=== PATIENT | female | born 1980 | race Caucasian/White ===

== ENCOUNTER 2019-02-06 11:40 | Inpatient (IN) | payer MEDICAID ==
[~2019-02-06] VITALS: Ht 157.5 cm; Wt 116.7 kg
[2019-02-06] VITALS (7 sets, daily range): BP systolic 119–152; BP diastolic 62–76
[2019-02-06 12:58] LABS: HEMATOCRIT 35.5 % (36.0-47.0); HEMOGLOBIN 11.4 g/dl (12.0-15.5); MEAN CORPUSCULAR HEMOGLOBIN 26.5 pg (27.0-33.0); MEAN CORPUSCULAR HGB CONC 32.1 g/dl (32.0-36.5); MEAN CORPUSCULAR VOLUME 82.6 fl (80.0-96.0); PLATELET COUNT, AUTOMATED 232 10^3/uL (150-450); WHITE BLOOD COUNT 6.6 10^3/uL (4.0-10.0)
[2019-02-06] MEDS: miSOPROStol 50 MCG 1/2 TAB (S0191) SL SCH ×3 (13:05→21:06)
--- NOTE | 2019-02-06 14:59 | HPE ---
DATE OF ADMISSION: 02/06/2019 HISTORY: 38-year-old 3 para 2 female at 38-0/7 weeks gestation by last menstrual period (LMP) consistent with 8 week ultrasound, estimated date of confinement (EDC) of 02/19/2019 presents for labor induction. The indication for induction is chronic hypertension on labetalol. She denies bleeding or contractions. COURSE: The patient initiated care at [facility] and care was transferred to [facility] at 25 weeks gestation due to a move. The patient moved to the [facility]. course is significant for hypothyroidism for which her Synthroid was restarted. She has a history of chronic hypertension and was on labetalol 50 mg twice a day. Blood pressures are stable. Antepartum testing was stable. She has a history of gastric bypass and did not need gestational diabetes testing. She did test sugars and they were adequate. OBSTETRICAL HISTORY: 1. 2000 at 40 weeks vaginal delivery 7 pound 12 ounce female infant. 2. 2001 at 40 weeks vaginal delivery 9 pound 1 ounce female . MEDICAL HISTORY: 1. Obesity. 2. Migraines. 3. Depression. 4. Hypothyroidism. 5. Chronic hypertension. SURGICAL HISTORY: 1. Gastric bypass. 2. Tonsillectomy and adenoidectomy. ALLERGIES: None. SOCIAL HISTORY: The patient lives in [place]. The father of the baby is involved. She denies cigarettes alcohol or drug use. FAMILY HISTORY: Noncontributory. PHYSICAL EXAMINATION: Blood pressure 128/78, pulse 84. No apparent distress. Head and neck exam normal. Lungs clear. Heart regular rate and rhythm. Abdomen nontender, gravid. heart tones category 1, contractions rare. Sterile vaginal exam 1 cm, long, -2, posterior, moderate, vertex. Extremities nontender. LABORATORIES: Blood type B positive. Rubella immune. RPR nonreactive. Hepatitis B and C negative. HIV negative. Group B Streptococcus (GBS) negative. ASSESSMENT: 38-year-old 3, para 2 female at 38-0/7 weeks gestation with chronic hypertension who presents for labor induction. PLAN: The patient was admitted on 02/06/2019. The risks of induction were discussed.
[2019-02-07 00:54] VITALS: BP 134/92
[2019-02-07] MEDS ORDERED: LR 1,000 ML IV SCH ×3 (01:31→05:00)
[2019-02-07] MEDS ORDERED: OXYTOCIN DRIP 30 UNITS in IV 1 EA IV SCH ×2 (01:45→04:42)
[2019-02-07] MEDS ORDERED: PROMETHAZINE INJ 25 MG/ML VIAL (J2550) IV ONE (01:45)
[2019-02-07] MEDS ORDERED: BUTORPHANOL 2 MG/ML INJ (J0595) IV ONE (01:45)
[2019-02-07 02:39] VITALS: BP 139/79
[2019-02-07] MEDS ORDERED: ceFAZolin 2 GM/D5W 50 ML IV BAG (J0690 PER 500MG) As Ordered ONE (03:03)
[2019-02-07] MEDS ORDERED: BICITRA 30ML SOLN UDC As Ordered ONE (03:04)
[2019-02-07] MEDS ORDERED: ONDANSETRON 4MG/2ML VIAL (J2405) IV PRN ×3 (03:54→05:00)
[2019-02-07] MEDS ORDERED: diphenhydrAMINE INJ 50MG/ML VIAL (J1200) IV PRN (03:54)
[2019-02-07] MEDS ORDERED: NALBUPHINE HCL 10 MG/ML AMP (J2300) IV PRN (03:54)
[2019-02-07] MEDS ORDERED: METOCLOPRAMIDE INJ 10MG/2ML VIAL (J2765) IV PRN ×2 (03:54→05:00)
[2019-02-07] MEDS ORDERED: NALOXONE INJ 0.4 MG/1 ML VIAL (J2310) IV PRN ×2 (03:54)
[2019-02-07] MEDS ORDERED: OXYTOCIN INJ 10 UNITS/ML VIAL (J2590) As Ordered ONE (04:09)
[2019-02-07] MEDS ORDERED: dexameTHASONE 4 MG/ML 1ML VIAL (J1100) As Ordered ONE (04:10)
[2019-02-07] MEDS ORDERED: ONDANSETRON 4MG/2ML VIAL (J2405) As Ordered ONE (04:10)
[2019-02-07 04:22] LABS: CORD GAS ABE V -3.9; CORD GAS HCO3 V 21.6 MEQ/L; CORD GAS O2 SAT V 52.3 %; CORD GAS PCO2 V 41.1 mmHg; CORD GAS PH V 7.339 UNITS; CORD GAS TCO2 V 22.9 MEQ/L
[2019-02-07] MEDS ORDERED: RHOGAM 300 MCG (1500 IU) INJ (J2790) IM SCH (04:45)
[2019-02-07] MEDS ORDERED: ONDANSETRON 4 MG TAB (S0181) PO PRN (04:45)
[2019-02-07] MEDS ORDERED: MEASLES,MUMPS,RUBELLA VACCINE INJ (MMR-II) (90707) SC SCH (04:45)
[2019-02-07] MEDS ORDERED: DOCUSATE SODIUM 100 MG CAP PO PRN (04:45)
[2019-02-07] MEDS ORDERED: OXYTOCIN 30 UNITS IN 0.9% NaCl 500ML IV BAG (J2590) As Ordered ONE (04:54)
[2019-02-07] MEDS ORDERED: PERCOCET 5MG/325MG TAB PO PRN (05:00)
[2019-02-07] MEDS ORDERED: MEPERIDINE INJ 25 MG/ML VIAL (J2175) IV PRN (05:00)
[2019-02-07] MEDS ORDERED: fentaNYL 100 MCG/2 ML INJECTION (J3010) IV PRN (05:00)
[2019-02-07] MEDS ORDERED: KETOROLAC 30 MG/ML VIAL (J1885) IV SCH (05:00)
[2019-02-07 06:45] VITALS: BP 116/55
[2019-02-07] MEDS ORDERED: MORPHINE PRES-FREE INJ 10 MG/10 ML VIAL (J2274) As Ordered ONE (07:24)
[2019-02-07] MEDS: PRENATAL VITAMINS CHEWABLE TABLET PO SCH (09:53)
[2019-02-07] MEDS: KETOROLAC 30 MG/ML VIAL (J1885) IV SCH ×2 (13:38→20:15)
[2019-02-07 14:00] VITALS: BP 113/57
[2019-02-07 18:00] VITALS: BP 109/53
[2019-02-07] MEDS ORDERED: OXYC1TAB23 PO (21:16)
[2019-02-07 22:00] VITALS: BP 111/58
[2019-02-08 02:16] VITALS: BP 96/53
[2019-02-08] MEDS: PERCOCET 5MG/325MG TAB PO PRN ×4 (02:19→19:31)
[2019-02-08] MEDS ORDERED: IBUPROFEN 800 MG TAB PO SCH (04:00)
[2019-02-08 06:22] VITALS: BP 131/68
[2019-02-08 07:09] LABS: HEMATOCRIT 31.5 % (36.0-47.0); HEMOGLOBIN 10.2 g/dl (12.0-15.5); MEAN CORPUSCULAR HEMOGLOBIN 27.1 pg (27.0-33.0); MEAN CORPUSCULAR HGB CONC 32.4 g/dl (32.0-36.5); MEAN CORPUSCULAR VOLUME 83.6 fl (80.0-96.0); PLATELET COUNT, AUTOMATED 228 10^3/uL (150-450); RED BLOOD COUNT 3.77 10^6/uL (4.00-5.40); WHITE BLOOD COUNT 10.8 10^3/uL (4.0-10.0)
[2019-02-08] MEDS: PRENATAL VITAMINS CHEWABLE TABLET PO SCH (07:22)
--- NOTE | 2019-02-08 11:08 | RO ---
DATE OF PROCEDURE: 02/07/2019 PREDELIVERY DIAGNOSIS: 38 weeks, chronic hypertension, intolerance of labor. POSTOPERATIVE DIAGNOSIS: 38 weeks, chronic hypertension, intolerance of labor. PROCEDURE: Primary low transverse section and bilateral tubal ligation. SURGEON: Errol Cerrato MD CASH APPLICATIONS CLERK: Socrates Prince DO ANESTHESIA: Spinal. ESTIMATED BLOOD LOSS: 500 mL. URINE OUTPUT: 100 mL. FINDINGS: 6 pound 10 ounce (3010 gram) male , score 8 and 9. Venous cord gas 7.339, base excess -3.1. Normal uterus, fallopian tubes and ovaries. DESCRIPTION OF PROCEDURE: Verbal consent was obtained for (C) section as well as tubal sterilization due to the emergent nature of the procedure. Spinal anesthesia was placed. The Coffman catheter had already been placed previously. A Traxi pannus retractor was placed. The abdomen was prepped with Betadine. A Pfannenstiel skin incision was made with a scalpel and carried through to the fascia. The fascia was nicked and extended. Peritoneal cavity was entered. A Mobius retractor was placed. A bladder flap was created. A curvilinear incision was made in the lower uterine segment. This was extended manually. The was delivered from the vertex position. Nuchal cord times one was reduced manually. Shoulders delivered with ease. The was handed off to the awaiting nurses. Placenta was expressed. The uterus was closed with #0 Vicryl in a running locked fashion. A second imbricating layer of #0 Vicryl was placed. Attention was turned to the fallopian tubes. The tubes were grasped with Enriqueta clamps. A window was created in the broad ligament. Three ties #3-0 chromic was placed around a segment tube on either side of clamp and a knuckle of tube was excised bilaterally and sent pathology. The peritoneum was closed with #2-0 Vicryl in a running fashion. The fascia was closed with #0 Vicryl in a running fashion. Deep layer was irrigated and closed with #2-0 chromic. Skin was closed with #4-0 Monocryl subcuticular sutures. Sponge, instrument, and needle counts were correct. Edited: 02/08/2019 1118 [facility]
[2019-02-08 14:55] VITALS: BP 132/75
[2019-02-08 18:03] VITALS: BP 146/71
[2019-02-08 22:08] VITALS: BP 120/68
[2019-02-09 02:08] VITALS: BP 127/68
[2019-02-09] MEDS: PERCOCET 5MG/325MG TAB PO PRN ×2 (03:56→09:27)
[2019-02-09 06:14] VITALS: BP 127/58
--- NOTE | 2019-02-09 07:51 | DS.PDOC ---
Discharge Summary General Date of Admission Feb 06, 2019 at 11:40 Date of Discharge 02/09/2019 Attending Physician: NORRIS STAHL MD Discharge Summary PROCEDURES PERFORMED DURING STAY: Primary section ADMITTING DIAGNOSES: 1. . DISCHARGE DIAGNOSES: 1. Day 2 postoperative with tubal ligation. COMPLICATIONS/CHIEF COMPLAINT: Induction. HISTORY OF PRESENT ILLNESS: . HOSPITAL COURSE: . DISCHARGE MEDICATIONS: Please see below. ALLERGIES: Please see below. PHYSICAL EXAMINATION ON DISCHARGE: VITAL SIGNS: Please see below. GENERAL: A+Ox3 CARDIOVASCULAR EXAMINATION: regular rate and rhythm RESPIRATORY EXAMINATION: regular rate with no use of accessory muscles ABDOMINAL EXAMINATION: dressing intact EXTREMITIES: generalized edema with no clonus SKIN: warm, dry, no rashes or unusual lesions LABORATORY DATA: Please see below. ACTIVITY: As tolerated. DIET: regular DISCHARGE INSTRUCTIONS: 1. . DISCHARGE CONDITION: Stable. Vital Signs/I&Os Vital Signs Date Time Temp Pulse Resp B/P (MAP) Pulse Ox O2 Delivery O2 Flow Rate FiO2 02/09/19 06:14 97.5 91 18 127/58 (81) 02/08/19 18:03 97 02/08/19 06:22 Room Air I&O- Last 24 Hours up to 6 AM 02/09/19 06:00 Intake Total 700 ml Balance 700 ml Discharge Medications Scheduled PRN Oxycodone HCl/Acetaminophen (Oxycodone-Acetaminophen 5-325) 1 Each Tablet, 1 TAB PO TIDP PRN for pain Allergies Coded Allergies: No Known Allergies (Unverified , 02/06/19) MARILYN ARRIAGA CNM Feb 09, 2019 07:51
[2019-02-09] MEDS: PRENATAL VITAMINS CHEWABLE TABLET PO SCH (09:25)
== END 2019-02-09 13:30 | disposition home or self-care (01) | DRG 540 ==
LOC: M LDI 11:40 → M OBS 02-07 06:25
PROVIDERS: ADMIT Specialist; ATTEND Specialist
PROC: 0UB70ZZ Excision of Bilateral Fallopian Tubes, Open Approach (ICD-10-PCS; 2019-02-07)
PROC: 10D00Z1 Extraction of Products of Conception, Low, Open Approach (ICD-10-PCS; principal; 2019-02-07 03:49)
DX: O76 Abnormality in fetal heart rate and rhythm complicating labor and delivery (principal); O10.42 Pre-existing secondary hypertension complicating childbirth; Z37.0 Single live birth; Z3A.38 38 weeks gestation of pregnancy; E03.9 Hypothyroidism, unspecified; O99.284 Endocrine, nutritional and metabolic diseases complicating childbirth; Z30.2 Encounter for sterilization; O09.523 Supervision of elderly multigravida, third trimester

== ENCOUNTER → 2019-05-28 | Outpatient (REF) ==
[~2019-05-28] MED LIST: OXYC1TAB23 PO
[2019-05-28 10:18] LABS: RUBELLA IgG QUALITATIVE IMMUNE (IMMUNE)
== END ==
LOC: M LAB 08:55
PROVIDERS: ATTEND Nurse Practitioner Adult Health
DX: Z02.1 Encounter for pre-employment examination (principal)

== ENCOUNTER → 2021-01-13 | Outpatient (CLI) | payer MEDICAID ==
[2021-01-13 10:23] LABS: ALBUMIN 3.5 GM/DL (3.2-5.2); ALT/SGPT 22 U/L (12-78); BILIRUBIN,TOTAL 0.4 MG/DL (0.2-1.0); BLOOD UREA NITROGEN 10 MG/DL (7-18); CARBON DIOXIDE LEVEL 24 MEQ/L (21-32); CHLORIDE LEVEL 111 MEQ/L (98-107); CHOLESTEROL LEVEL 176 MG/DL (<200); CREATININE FOR GFR 0.77 MG/DL (0.55-1.30); GLOMERULAR FILTRATION RATE > 60.0 (>58); GLUCOSE, FASTING 86 MG/DL (70-100); HDL CHOLESTEROL 51 MG/DL (>40); LDL CHOLESTEROL 106 MG/DL (<100); NON-HDL-C 125 MG/DL; POTASSIUM SERUM 4.5 MEQ/L (3.5-5.1); SODIUM LEVEL 141 MEQ/L (136-145); TOTAL PROTEIN 6.4 GM/DL (6.4-8.2); TRIGLYCERIDES LEVEL 95 MG/DL (<150)
== END ==
LOC: M LAB 08:51
PROVIDERS: ATTEND Family Medicine Addiction Medicine
DX: E03.9 Hypothyroidism, unspecified (principal)

== ENCOUNTER 2021-02-16 11:34 | Emergency (ER) | payer MEDICAID ==
[~2021-02-16] VITALS: Ht 157.5 cm; Wt 120.9 kg
[2021-02-16] MEDS ORDERED: OMEP40CA5 (11:46)
[2021-02-16] MEDS ORDERED: ACET325C5 PO (11:46)
[2021-02-16] MEDS ORDERED: MONT10TA97 (11:46)
[2021-02-16] MEDS ORDERED: LEVO100T5 (11:46)
[2021-02-16] MEDS ORDERED: ACETAMINOPHEN 325 MG TAB PO ONE (12:55)
[2021-02-16] MEDS ORDERED: IBUPROFEN 600MG TAB PO ONE (12:55)
[2021-02-16 13:33] VITALS: BP 134/76
[2021-02-16 14:03] LABS: RSV AMPLIFICATION NEGATIVE (NEGATIVE)
[2021-03-13] MEDS ORDERED: LIDO2SOL17 PO (21:17)
[2021-03-13] MEDS ORDERED: BENZ200C70 PO (21:17)
== END 2021-02-16 13:58 | disposition home or self-care (01) ==
LOC: M ED 11:34
DX: R51.9 Headache, unspecified (principal); R42 Dizziness and giddiness; I10 Essential (primary) hypertension; E03.9 Hypothyroidism, unspecified; Z79.890 Hormone replacement therapy; Z79.899 Other long term (current) drug therapy

== ENCOUNTER 2021-02-18 07:18 | Emergency (ER) | payer MEDICAID ==
[~2021-02-18] VITALS: Ht 154.9 cm; Wt 122.2 kg
[~2021-02-18 07:18] MED LIST changes: +ACET325C5 PO; +LEVO100T5; +MONT10TA97; +OMEP40CA5
[2021-02-18] MEDS ORDERED: KETOROLAC 30 MG/ML 1ML VIAL IV ONE (08:10)
[2021-02-18 08:32] LABS: BASO % 0.3 % (0.0-1.0); EOS # 0.1 10^3/uL (0.0-0.5); EOS % 0.7 % (0.0-3.0); HEMATOCRIT 36.7 % (36.0-47.0); HEMOGLOBIN 11.2 g/dl (12.0-15.5); LYMPH # 1.6 10^3/uL (1.5-5.0); LYMPH % 23.8 % (24.0-44.0); MEAN CORPUSCULAR HEMOGLOBIN 22.2 pg (27.0-33.0); MEAN CORPUSCULAR HGB CONC 30.5 g/dl (32.0-36.5); MEAN CORPUSCULAR VOLUME 72.7 fl (80.0-96.0); MONO # 0.7 10^3/uL (0.0-0.8); NEUTROPHILS # 4.3 10^3/uL (1.5-8.5); NEUTROPHILS % 63.9 % (36.0-66.0); PLATELET COUNT, AUTOMATED 439 10^3/uL (150-450); RED BLOOD COUNT 5.05 10^6/uL (4.00-5.40); WHITE BLOOD COUNT 6.7 10^3/uL (4.0-10.0)
[2021-02-18] MEDS ORDERED: ISOVUE-370 76% 100ML VIAL As Ordered ONE (08:37)
[2021-02-18 08:56] LABS: ALT/SGPT 25 U/L (12-78); BILIRUBIN,DIRECT < 0.1 MG/DL (0.0-0.2); BILIRUBIN,TOTAL 0.3 MG/DL (0.2-1.0); LIPASE 170 U/L (73-393); TOTAL PROTEIN 7.1 GM/DL (6.4-8.2)
[2021-02-18 10:55] VITALS: BP 125/73
[2021-03-13] MEDS ORDERED: LIDO2SOL17 PO (21:17)
[2021-03-13] MEDS ORDERED: BENZ200C70 PO (21:17)
== END 2021-02-18 11:07 | disposition home or self-care (01) ==
LOC: M ED 07:18
DX: R10.9 Unspecified abdominal pain (principal); E16.2 Hypoglycemia, unspecified; I10 Essential (primary) hypertension; J45.909 Unspecified asthma, uncomplicated; E03.9 Hypothyroidism, unspecified; Z98.84 Bariatric surgery status
CPT/HCPCS: 74177; 80047; 80076; 81001; 83690; 85025; 96374; 99284; J1885; Q9967

== ENCOUNTER → 2021-04-05 | Outpatient (CLI) | payer MEDICAID ==
[~2021-04-05] MED LIST changes: +BENZ200C70 PO; +LIDO2SOL17 PO
[2021-04-05 09:12] LABS: ALBUMIN 3.7 GM/DL (3.2-5.2); ALT/SGPT 23 U/L (12-78); BILIRUBIN,TOTAL 0.2 MG/DL (0.2-1.0); BLOOD UREA NITROGEN 10 MG/DL (7-18); CARBON DIOXIDE LEVEL 25 MEQ/L (21-32); CHLORIDE LEVEL 110 MEQ/L (98-107); CHOLESTEROL LEVEL 170 MG/DL (<200); CHOLESTEROL RISK RATIO 3.269 (<5); CREATININE FOR GFR 0.74 MG/DL (0.55-1.30); GLOMERULAR FILTRATION RATE > 60.0 (>58); GLUCOSE, FASTING 110 MG/DL (70-100); HDL CHOLESTEROL 52 MG/DL (>40); LDL CHOLESTEROL 97 MG/DL (<100); NON-HDL-C 118 MG/DL; POTASSIUM SERUM 4.4 MEQ/L (3.5-5.1); SODIUM LEVEL 142 MEQ/L (136-145); TOTAL PROTEIN 6.9 GM/DL (6.4-8.2); TRIGLYCERIDES LEVEL 104 MG/DL (<150)
== END ==
LOC: M LAB 07:44
PROVIDERS: ATTEND Family Medicine Addiction Medicine
DX: E03.9 Hypothyroidism, unspecified (principal)

== ENCOUNTER 2021-04-15 06:16 | Emergency (ER) | payer MEDICAID ==
[~2021-04-15] VITALS: Ht 157.5 cm; Wt 122.0 kg
[2021-04-15 08:22] LABS: BASO % 0.5 % (0.0-1.0); EOS # 0.1 10^3/uL (0.0-0.5); HEMATOCRIT 35.1 % (36.0-47.0); HEMOGLOBIN 10.7 g/dl (12.0-15.5); LYMPH # 1.6 10^3/uL (1.5-5.0); LYMPH % 20.3 % (24.0-44.0); MEAN CORPUSCULAR HEMOGLOBIN 22.3 pg (27.0-33.0); MEAN CORPUSCULAR HGB CONC 30.5 g/dl (32.0-36.5); MEAN CORPUSCULAR VOLUME 73.3 fl (80.0-96.0); MONO # 0.8 10^3/uL (0.0-0.8); MONO % 10.2 % (2.0-8.0); NEUTROPHILS # 5.2 10^3/uL (1.5-8.5); NEUTROPHILS % 67.6 % (36.0-66.0); PLATELET COUNT, AUTOMATED 425 10^3/uL (150-450); RED BLOOD COUNT 4.79 10^6/uL (4.00-5.40); WHITE BLOOD COUNT 7.6 10^3/uL (4.0-10.0)
[2021-04-15 08:45] LABS: ALBUMIN 3.8 GM/DL (3.2-5.2); ALT/SGPT 23 U/L (12-78); BILIRUBIN,DIRECT < 0.1 MG/DL (0.0-0.2); BILIRUBIN,TOTAL 0.3 MG/DL (0.2-1.0); BLOOD UREA NITROGEN 12 MG/DL (7-18); CALCIUM LEVEL 8.9 MG/DL (8.5-10.1); CARBON DIOXIDE LEVEL 25 MEQ/L (21-32); CHLORIDE LEVEL 112 MEQ/L (98-107); CREATININE FOR GFR 0.82 MG/DL (0.55-1.30); GLOMERULAR FILTRATION RATE > 60.0 (>58); GLUCOSE, FASTING 98 MG/DL (70-100); LIPASE 193 U/L (73-393); SODIUM LEVEL 143 MEQ/L (136-145); TOTAL PROTEIN 7.1 GM/DL (6.4-8.2)
[2021-04-15] MEDS ORDERED: KETOROLAC 30 MG/ML 1ML VIAL IM ONE (11:30)
[2021-04-15 14:38] VITALS: BP 139/83
== END 2021-04-15 14:40 | disposition home or self-care (01) ==
LOC: M ED 06:16
DX: R10.9 Unspecified abdominal pain (principal); K44.9 Diaphragmatic hernia without obstruction or gangrene; K82.1 Hydrops of gallbladder; I88.0 Nonspecific mesenteric lymphadenitis; K21.9 Gastro-esophageal reflux disease without esophagitis; Z98.84 Bariatric surgery status
CPT/HCPCS: 74018; 74176; 80048; 80076; 81001; 83690; 85025; 93005; 96372; 99284; J1885

== ENCOUNTER 2021-04-24 05:40 | Emergency (ER) | payer MEDICAID ==
[~2021-04-24] VITALS: Ht 157.5 cm; Wt 122.3 kg
[2021-04-24] MEDS ORDERED: KETOROLAC 30 MG/ML 1ML VIAL IV ONE (08:25)
[2021-04-24] MEDS ORDERED: LIDOCAINE 5% (LIDODERM) PATCH TD ONE (08:25)
[2021-04-24] MEDS ORDERED: KETOROLAC 30 MG/ML 1ML VIAL IM ONE (08:35)
[2021-04-24] MEDS ORDERED: METH-1164 PO (11:59)
[2021-04-24 12:03] VITALS: BP 120/70
[2021-04-24] MEDS ORDERED: **NOTE PATIENT COMMENT** MISC XX ONE (21:00)
== END 2021-04-24 12:10 | disposition home or self-care (01) ==
LOC: M ED 05:40
DX: M54.50 Low back pain, unspecified (principal); M25.552 Pain in left hip; W00.9XXA Unspecified fall due to ice and snow, initial encounter; I10 Essential (primary) hypertension; E78.5 Hyperlipidemia, unspecified; J45.909 Unspecified asthma, uncomplicated; F32.A Depression, unspecified; K21.9 Gastro-esophageal reflux disease without esophagitis; Z98.84 Bariatric surgery status; Y92.9 Unspecified place or not applicable; Y93.9 Activity, unspecified; Y99.9 Unspecified external cause status
CPT/HCPCS: 72131; 73502; 96372; 99283; J1885

== ENCOUNTER 2021-05-12 05:12 | Emergency (ER) | payer MEDICAID ==
[~2021-05-12] VITALS: Ht 157.5 cm; Wt 109.1 kg
[~2021-05-12 05:12] MED LIST changes: +METH-1164 PO
[2021-05-12] MEDS ORDERED: ACET-683 PO (05:23)
[2021-05-12 05:50] LABS: BASO % 0.5 % (0.0-1.0); EOS # 0.1 10^3/uL (0.0-0.5); EOS % 0.9 % (0.0-3.0); HEMATOCRIT 32.6 % (36.0-47.0); HEMOGLOBIN 10.1 g/dl (12.0-15.5); LYMPH # 1.3 10^3/uL (1.5-5.0); LYMPH % 22.4 % (24.0-44.0); MEAN CORPUSCULAR HEMOGLOBIN 22.8 pg (27.0-33.0); MEAN CORPUSCULAR VOLUME 73.6 fl (80.0-96.0); MONO # 0.6 10^3/uL (0.0-0.8); MONO % 9.4 % (2.0-8.0); NEUTROPHILS # 3.9 10^3/uL (1.5-8.5); NEUTROPHILS % 66.6 % (36.0-66.0); PLATELET COUNT, AUTOMATED 361 10^3/uL (150-450); RED BLOOD COUNT 4.43 10^6/uL (4.00-5.40); WHITE BLOOD COUNT 5.9 10^3/uL (4.0-10.0)
[2021-05-12 06:15] LABS: ALBUMIN 3.4 GM/DL (3.2-5.2); ALT/SGPT 21 U/L (12-78); BILIRUBIN,TOTAL 0.3 MG/DL (0.2-1.0); BLOOD UREA NITROGEN 13 MG/DL (7-18); CALCIUM LEVEL 8.2 MG/DL (8.5-10.1); CARBON DIOXIDE LEVEL 24 MEQ/L (21-32); CHLORIDE LEVEL 112 MEQ/L (98-107); CK-MB VALUE MASS < 1.0 NG/ML (<3.6); CPK CREATINE PHOSPHOKINASE 182 U/L (26-192); CREATININE FOR GFR 0.77 MG/DL (0.55-1.30); GLOMERULAR FILTRATION RATE > 60.0 (>58); GLUCOSE, FASTING 128 MG/DL (70-100); MB/CK RELATIVE INDEX 0.55 (< OR =4); SODIUM LEVEL 141 MEQ/L (136-145)
[2021-05-12 06:16] LABS: HCG, SERUM QUALITATIVE NEGATIVE (NEGATIVE)
[2021-05-12] MEDS ORDERED: FAMOTIDINE 20 MG TAB PO ONE (07:30)
[2021-05-12] MEDS ORDERED: GI COCKTAIL 50ML BTL(HYOSCYAMINE/MAALOX/LIDOCAINE VISCOUS)(1:3:1) PO ONE (07:30)
[2021-05-12] MEDS ORDERED: CARA1TAB6 PO (09:30)
[2021-05-12 09:38] VITALS: BP 125/67
== END 2021-05-12 09:47 | disposition home or self-care (01) ==
LOC: M ED 05:12
DX: R07.9 Chest pain, unspecified (principal); I10 Essential (primary) hypertension; J45.909 Unspecified asthma, uncomplicated; K21.9 Gastro-esophageal reflux disease without esophagitis; Z98.84 Bariatric surgery status; Z79.899 Other long term (current) drug therapy

== ENCOUNTER 2021-05-26 05:15 | Emergency (ER) | payer MEDICAID ==
[~2021-05-26] VITALS: Ht 157.5 cm; Wt 109.1 kg
[~2021-05-26 05:15] MED LIST changes: +ACET-683 PO; +CARA1TAB6 PO
[2021-05-26 05:17] VITALS: BP 127/76
[2021-05-26 07:35] LABS: BASO % 0.6 % (0.0-1.0); EOS % 0.6 % (0.0-3.0); HEMATOCRIT 34.4 % (36.0-47.0); HEMOGLOBIN 10.5 g/dl (12.0-15.5); LYMPH # 1.5 10^3/uL (1.5-5.0); LYMPH % 23.8 % (24.0-44.0); MEAN CORPUSCULAR HEMOGLOBIN 21.9 pg (27.0-33.0); MEAN CORPUSCULAR HGB CONC 30.5 g/dl (32.0-36.5); MEAN CORPUSCULAR VOLUME 71.8 fl (80.0-96.0); MONO # 0.6 10^3/uL (0.0-0.8); MONO % 8.9 % (2.0-8.0); NEUTROPHILS # 4.1 10^3/uL (1.5-8.5); NEUTROPHILS % 65.9 % (36.0-66.0); PLATELET COUNT, AUTOMATED 400 10^3/uL (150-450); RED BLOOD COUNT 4.79 10^6/uL (4.00-5.40); WHITE BLOOD COUNT 6.2 10^3/uL (4.0-10.0)
[2021-05-26] MEDS ORDERED: ONDANSETRON 4 MG ORAL DISINTEGRATING TAB PO ONE (08:05)
[2021-05-26 08:07] LABS: ALBUMIN 3.6 GM/DL (3.2-5.2); ALT/SGPT 25 U/L (12-78); BILIRUBIN,DIRECT < 0.1 MG/DL (0.0-0.2); BILIRUBIN,TOTAL 0.3 MG/DL (0.2-1.0); BLOOD UREA NITROGEN 9 MG/DL (7-18); CALCIUM LEVEL 8.7 MG/DL (8.5-10.1); CARBON DIOXIDE LEVEL 27 MEQ/L (21-32); CHLORIDE LEVEL 111 MEQ/L (98-107); CREATININE FOR GFR 0.87 MG/DL (0.55-1.30); GLOMERULAR FILTRATION RATE > 60.0 (>58); GLUCOSE, FASTING 92 MG/DL (70-100); LIPASE 240 U/L (73-393); POTASSIUM SERUM 4.5 MEQ/L (3.5-5.1); SODIUM LEVEL 141 MEQ/L (136-145); TOTAL PROTEIN 6.9 GM/DL (6.4-8.2)
[2021-05-26 08:15] LABS: HCG, SERUM QUALITATIVE NEGATIVE (NEGATIVE)
== END 2021-05-26 08:58 | disposition home or self-care (01) ==
LOC: M ED 05:15
DX: R10.84 Generalized abdominal pain (principal); I10 Essential (primary) hypertension; J45.909 Unspecified asthma, uncomplicated; K21.9 Gastro-esophageal reflux disease without esophagitis; E03.9 Hypothyroidism, unspecified; Z98.84 Bariatric surgery status

== ENCOUNTER → 2021-06-04 | Outpatient (CLI) | payer MEDICAID ==
[2021-06-04 09:00] LABS: BASO # 0.1 10^3/uL (0.0-0.2); BASO % 0.7 % (0.0-1.0); EOS # 0.1 10^3/uL (0.0-0.5); EOS % 0.8 % (0.0-3.0); HEMATOCRIT 33.9 % (36.0-47.0); HEMATOCRIT 34.7 % (36.0-47.0); HEMOGLOBIN 10.6 g/dl (12.0-15.5); LYMPH # 1.6 10^3/uL (1.5-5.0); LYMPH % 22.9 % (24.0-44.0); MEAN CORPUSCULAR HEMOGLOBIN 22.5 pg (27.0-33.0); MEAN CORPUSCULAR HGB CONC 30.5 g/dl (32.0-36.5); MEAN CORPUSCULAR VOLUME 73.7 fl (80.0-96.0); MONO # 0.8 10^3/uL (0.0-0.8); MONO % 11.2 % (2.0-8.0); NEUTROPHILS # 4.6 10^3/uL (1.5-8.5); NEUTROPHILS % 64.1 % (36.0-66.0); PLATELET COUNT, AUTOMATED 397 10^3/uL (150-450); RED BLOOD COUNT 4.71 10^6/uL (4.00-5.40); WHITE BLOOD COUNT 7.1 10^3/uL (4.0-10.0)
[2021-06-04 09:27] LABS: ALBUMIN 3.6 GM/DL (3.2-5.2); ALT/SGPT 20 U/L (12-78); BILIRUBIN,TOTAL 0.3 MG/DL (0.2-1.0); BLOOD UREA NITROGEN 14 MG/DL (7-18); CALCIUM LEVEL 9.2 MG/DL (8.5-10.1); CARBON DIOXIDE LEVEL 25 MEQ/L (21-32); CHLORIDE LEVEL 112 MEQ/L (98-107); CREATININE FOR GFR 0.84 MG/DL (0.55-1.30); FERRITIN 5 NG/ML (8-252); GLOMERULAR FILTRATION RATE > 60.0 (>58); GLUCOSE, FASTING 90 MG/DL (70-100); IRON (FE) 49 UG/DL (50-170); MAGNESIUM LEVEL 2.1 MG/DL (1.8-2.4); PERCENT SATURATION 10.2 % (13.2-45.0); PHOSPHORUS LEVEL 4.3 MG/DL (2.5-4.9); POTASSIUM SERUM 4.4 MEQ/L (3.5-5.1); SODIUM LEVEL 141 MEQ/L (136-145); TOTAL IRON BINDING CAPACITY 481 UG/DL (250-450); TOTAL PROTEIN 6.9 GM/DL (6.4-8.2)
[2021-06-04 09:47] LABS: HEMOGLOBIN A1c 5.7 %
[2021-06-04 10:27] LABS: TOTAL 25(OH) VITAMIN D 24.8 NG/ML (30.0-100.0); VITAMIN B12 LEVEL 391 PG/ML (247-911)
== END ==
LOC: M LAB 08:40
PROVIDERS: ATTEND Physician Assistant Surgical
DX: K91.2 Postsurgical malabsorption, not elsewhere classified (principal)

== ENCOUNTER → 2021-06-15 | Outpatient (CLI) | payer MEDICAID | LOC: M WHC 06:50 | PROVIDERS: ATTEND Physician Assistant | DX: Z12.31 Encounter for screening mammogram for malignant neoplasm of breast (principal) ==

== ENCOUNTER → 2021-06-22 | Outpatient (CLI) | payer MEDICAID | LOC: M RAD 11:01 | PROVIDERS: ATTEND Physician Assistant Surgical | DX: K80.20 Calculus of gallbladder without cholecystitis without obstruction (principal); R10.11 Right upper quadrant pain ==

== ENCOUNTER → 2021-06-30 | Outpatient (REF) | payer MEDICAID ==
[~2021-06-30] MED LIST changes: +CYCL5TAB PO
[2021-06-30 13:38] LABS: APPEARANCE, URINE HAZY (CLEAR); BACTERIA, URINE AUTO NEGATIVE (NEGATIVE); BILIRUBIN, URINE AUTO NEGATIVE (NEGATIVE); BLOOD, URINE BLOOD NEGATIVE (NEGATIVE); COLOR, URINE YELLOW (YELLOW); GLUCOSE, URINE (UA) AUTO NEGATIVE (NEGATIVE); KETONE, URINE AUTO NEGATIVE (NEGATIVE); LEUKOCYTE ESTERASE, URINE AUTO NEGATIVE (NEGATIVE); MUCUS, URINE SMALL (NEGATIVE); NITRITE, URINE AUTO NEGATIVE (NEGATIVE); PROTEIN, URINE AUTO NEGATIVE (NEGATIVE); RBC, URINE AUTO 0 /HPF (0-3); SPECIFIC GRAVITY URINE AUTO 1.028 (1.002-1.035); SQUAMOUS EPITHELIAL CELL UR AU 2 /HPF (0-6); UROBILINOGEN, URINE AUTO 0.2 mg/dL (0.0-2.0); WBC, URINE AUTO 1 /HPF (0-3)
== END ==
LOC: M LAB REF 13:18
PROVIDERS: ATTEND Physician Assistant Medical
DX: R30.0 Dysuria (principal)

== ENCOUNTER 2021-07-01 05:03 | Emergency (ER) | payer MEDICAID ==
[~2021-07-01] VITALS: Ht 157.5 cm; Wt 109.1 kg
[~2021-07-01 05:03] MED LIST changes: -CYCL5TAB PO
[2021-07-01 09:46] VITALS: BP 158/86
[2021-07-01] MEDS ORDERED: KETOROLAC 30 MG/ML 1ML VIAL IM ONE (10:00)
[2021-07-01] MEDS ORDERED: CYCL5TAB PO (10:02)
[2021-07-01] MEDS ORDERED: ACET-683 PO (10:02)
== END 2021-07-01 10:19 | disposition home or self-care (01) ==
LOC: M ED 05:03
DX: M54.32 Sciatica, left side (principal); M43.17 Spondylolisthesis, lumbosacral region; M51.37 Other intervertebral disc degeneration, lumbosacral region; I10 Essential (primary) hypertension; J45.909 Unspecified asthma, uncomplicated; K21.9 Gastro-esophageal reflux disease without esophagitis; Z79.899 Other long term (current) drug therapy
CPT/HCPCS: 72110; 96372; 99283; J1885

== ENCOUNTER → 2021-12-05 | Outpatient (CLI) | payer MEDICAID ==
[~2021-12-05] MED LIST changes: +CYCL5TAB PO
[2021-12-05 09:54] LABS: BASO % 0.3 % (0.0-1.0); EOS # 0.1 10^3/uL (0.0-0.5); EOS % 0.7 % (0.0-3.0); HEMATOCRIT 43.7 % (36.0-47.0); HEMOGLOBIN 14.5 g/dl (12.0-15.5); LYMPH # 1.7 10^3/uL (1.5-5.0); LYMPH % 23.9 % (24.0-44.0); MEAN CORPUSCULAR HGB CONC 33.2 g/dl (32.0-36.5); MEAN CORPUSCULAR VOLUME 84.5 fl (80.0-96.0); MONO # 0.7 10^3/uL (0.0-0.8); MONO % 9.6 % (2.0-8.0); NEUTROPHILS # 4.5 10^3/uL (1.5-8.5); NEUTROPHILS % 65.2 % (36.0-66.0); RED BLOOD COUNT 5.17 10^6/uL (4.00-5.40)
[2021-12-05 10:34] LABS: HEMATOCRIT 43.4 % (36.0-47.0)
[2021-12-05 10:35] LABS: PLATELET COUNT, AUTOMATED 266 10^3/uL (150-450)
[2021-12-05 10:53] LABS: ALBUMIN 3.7 GM/DL (3.2-5.2); ALT/SGPT 29 U/L (12-78); BILIRUBIN,TOTAL 0.2 MG/DL (0.2-1.0); BLOOD UREA NITROGEN 14 MG/DL (7-18); CALCIUM LEVEL 8.9 MG/DL (8.5-10.1); CARBON DIOXIDE LEVEL 22 MEQ/L (21-32); CHLORIDE LEVEL 110 MEQ/L (98-107); CREATININE FOR GFR 0.82 MG/DL (0.55-1.30); FERRITIN 21 NG/ML (8-252); GLOMERULAR FILTRATION RATE > 60.0 (>58); GLUCOSE, FASTING 110 MG/DL (70-100); IRON (FE) 115 UG/DL (50-170); MAGNESIUM LEVEL 1.8 MG/DL (1.8-2.4); PERCENT SATURATION 29.8 % (13.2-45.0); PHOSPHORUS LEVEL 3.6 MG/DL (2.5-4.9); POTASSIUM SERUM 4.1 MEQ/L (3.5-5.1); SODIUM LEVEL 139 MEQ/L (136-145); TOTAL IRON BINDING CAPACITY 386 UG/DL (250-450); TOTAL PROTEIN 6.9 GM/DL (6.4-8.2)
[2021-12-05 23:42] LABS: TOTAL 25(OH) VITAMIN D 26.4 NG/ML (30.0-100.0)
[2021-12-07 15:31] LABS: VITAMIN B12 LEVEL 551 PG/ML (247-911)
== END ==
LOC: M LAB 08:52
PROVIDERS: ATTEND Physician Assistant Surgical
DX: K91.2 Postsurgical malabsorption, not elsewhere classified (principal); Z98.84 Bariatric surgery status; E55.9 Vitamin D deficiency, unspecified; Z86.39 Personal history of other endocrine, nutritional and metabolic disease

== ENCOUNTER → 2022-01-30 | Outpatient (REF) | payer MEDICAID ==
[2022-01-30 13:01] LABS: APPEARANCE, URINE MANUAL CLEAR (CLEAR); COLOR, URINE MANUAL YELLOW (YELLOW); SPECIFIC GRAVITY,URINE MANUAL 1.015 (1.002-1.035)
[2022-01-30 13:02] LABS: BILIRUBIN, URINE MANUAL NEGATIVE (NEGATIVE); BLOOD URINE MANUAL NEGATIVE (NEGATIVE); GLUCOSE, URINE (UA) MANUAL NEGATIVE (NEGATIVE); KETONE, URINE MANUAL NEGATIVE (NEGATIVE); LEUKOCYTE ESTERASE, URINE MAN NEGATIVE (NEGATIVE); NITRITE, URINE MANUAL NEGATIVE (NEGATIVE); PROTEIN, URINE MANUAL NEGATIVE (NEGATIVE); UROBILINOGEN, URINE MANUAL NORMAL (NORMAL)
== END ==
LOC: M LAB REF 12:32
PROVIDERS: ATTEND Physician Assistant
DX: N39.0 Urinary tract infection, site not specified (principal)

== ENCOUNTER → 2022-02-10 | Outpatient (REF) | payer MEDICAID | LOC: M LAB REF 18:03 | PROVIDERS: ATTEND Physician Assistant Medical | DX: J06.9 Acute upper respiratory infection, unspecified (principal) ==

== ENCOUNTER 2022-02-14 06:52 | Emergency (ER) | payer MEDICAID ==
[~2022-02-14] VITALS: Ht 157.5 cm; Wt 127.4 kg
[2022-02-14] MEDS ORDERED: diphenhydrAMINE 50MG/ML VIAL IV ONE (09:10)
[2022-02-14] MEDS ORDERED: ABRE10CR TOP (09:24)
[2022-02-14 09:29] VITALS: BP 147/79
== END 2022-02-14 10:03 | disposition home or self-care (01) ==
LOC: M ED 06:52
DX: R07.89 Other chest pain (principal); R09.81 Nasal congestion; B34.9 Viral infection, unspecified; M94.0 Chondrocostal junction syndrome [Tietze]; I10 Essential (primary) hypertension; J45.909 Unspecified asthma, uncomplicated; K21.9 Gastro-esophageal reflux disease without esophagitis; E03.9 Hypothyroidism, unspecified; Z98.84 Bariatric surgery status; Z79.890 Hormone replacement therapy; Z79.899 Other long term (current) drug therapy

== ENCOUNTER → 2022-03-07 | Outpatient (REF) ==
[~2022-03-07] MED LIST changes: +ABRE10CR TOP
== END ==
LOC: M EMP 08:01
PROVIDERS: ATTEND Family Medicine
DX: Z11.52 Encounter for screening for COVID-19 (principal)

== ENCOUNTER → 2022-03-18 | Outpatient (REF) ==
[2022-03-18 11:53] LABS: RSV AMPLIFICATION NEGATIVE (NEGATIVE)
== END ==
LOC: M EMP 09:47
PROVIDERS: ATTEND Family Medicine
DX: Z11.52 Encounter for screening for COVID-19 (principal)

== ENCOUNTER → 2022-06-21 | Outpatient (REF) | payer MEDICAID ==
[~2022-06-21] MED LIST changes: +LIDO15SO PO; -LIDO2SOL17 PO
[2022-06-21 14:06] LABS: ALBUMIN 3.9 G/DL (3.2-5.2); ALKALINE PHOSPHATASE 78 U/L (46-116); ALT/SGPT 32 U/L (7.0-40); AST/SGOT 23 U/L (<34); BILIRUBIN,TOTAL 0.4 MG/DL (0.3-1.2); BLOOD UREA NITROGEN 13 MG/DL (9-23); CALCIUM LEVEL 9.6 MG/DL (8.5-10.1); CARBON DIOXIDE LEVEL 24 MMOL/L (20-31); CHLORIDE LEVEL 108 MMOL/L (98-107); CHOLESTEROL LEVEL 158 MG/DL (<200); CHOLESTEROL RISK RATIO 3.34 (<5); GLOMERULAR FILTRATION RATE > 60.0 (>58); GLUCOSE, FASTING 95 MG/DL (60-100); HDL CHOLESTEROL 47.3 MG/DL (>40); LDL CHOLESTEROL 86.1 MG/DL (<100); NON-HDL-C 110.7 MG/DL; POTASSIUM SERUM 4.5 MMOL/L (3.5-5.1); SODIUM LEVEL 141 MMOL/L (136-145); TOTAL PROTEIN 6.6 G/DL (5.7-8.2); TRIGLYCERIDES LEVEL 123 MG/DL (<150)
[2022-06-21 14:07] LABS: THYROID STIMULATING HORMONE 2.157 uIU/ML (0.55-4.78)
== END ==
LOC: M LAB REF 12:31
PROVIDERS: ATTEND Family Medicine Addiction Medicine
DX: E03.9 Hypothyroidism, unspecified (principal)

== ENCOUNTER → 2022-06-28 | Outpatient (CLI) | payer MEDICAID | LOC: M WHC 07:08 | PROVIDERS: ATTEND Physician Assistant | DX: Z01.419 Encounter for gynecological examination (general) (routine) without abnormal findings (principal) ==

== ENCOUNTER → 2022-11-11 | Outpatient (CLI) | payer MEDICAID ==
[2022-11-11 10:46] LABS: BASO % 0.4 % (0.0-1.0); EOS % 0.5 % (0.0-3.0); HEMATOCRIT 42.5 % (36.0-47.0); HEMOGLOBIN 14.4 g/dl (12.0-15.5); LYMPH # 1.8 10^3/uL (1.5-5.0); LYMPH % 22.5 % (24.0-44.0); MEAN CORPUSCULAR HEMOGLOBIN 29.9 pg (27.0-33.0); MEAN CORPUSCULAR HGB CONC 33.9 g/dl (32.0-36.5); MEAN CORPUSCULAR VOLUME 88.4 fl (80.0-96.0); MONO # 0.8 10^3/uL (0.0-0.8); NEUTROPHILS # 5.2 10^3/uL (1.5-8.5); NEUTROPHILS % 66.3 % (36.0-66.0); PLATELET COUNT, AUTOMATED 323 10^3/uL (150-450); RED BLOOD COUNT 4.81 10^6/uL (4.00-5.40); WHITE BLOOD COUNT 7.8 10^3/uL (4.0-10.0)
[2022-11-11 11:21] LABS: TOTAL IRON BINDING CAPACITY 335 UG/DL (250-425)
[2022-11-11 11:22] LABS: HEMOGLOBIN A1c 5.5 % (4.0-6.0)
[2022-11-11 11:26] LABS: ALBUMIN 3.7 G/DL (3.2-5.2); ALKALINE PHOSPHATASE 86 U/L (46-116); ALT/SGPT 36 U/L (7.0-40); AST/SGOT 18 U/L (<34); BILIRUBIN,TOTAL 0.3 MG/DL (0.3-1.2); BLOOD UREA NITROGEN 11 MG/DL (9-23); CALCIUM LEVEL 9.1 MG/DL (8.5-10.1); CARBON DIOXIDE LEVEL 20 MMOL/L (20-31); CHLORIDE LEVEL 107 MMOL/L (98-107); CREATININE FOR GFR 0.64 MG/DL (0.55-1.30); FERRITIN 27.4 NG/ML (7.3-270.7); FOLATE 18.7 NG/ML (>5.4); GLOMERULAR FILTRATION RATE > 60.0 (>58); GLUCOSE, FASTING 81 MG/DL (60-100); IRON (FE) 92 UG/DL (50-170); MAGNESIUM LEVEL 1.6 MG/DL (1.8-2.4); PERCENT SATURATION 27.5 % (13.2-45.0); PHOSPHORUS LEVEL 3.6 MG/DL (2.5-4.9); POTASSIUM SERUM 4.2 MMOL/L (3.5-5.1); SODIUM LEVEL 139 MMOL/L (136-145); TOTAL 25(OH) VITAMIN D 27.2 NG/ML (20.0-100.0); TOTAL PROTEIN 6.6 G/DL (5.7-8.2); VITAMIN B12 LEVEL 387 PG/ML (211-911)
== END ==
LOC: M LAB 09:35
PROVIDERS: ATTEND Physician Assistant Surgical
DX: K91.2 Postsurgical malabsorption, not elsewhere classified (principal); Z98.84 Bariatric surgery status; E55.9 Vitamin D deficiency, unspecified; Z86.39 Personal history of other endocrine, nutritional and metabolic disease

== ENCOUNTER → 2023-01-03 | Outpatient (REF) | payer MEDICAID ==
[2023-01-03 12:26] LABS: CHOLESTEROL RISK RATIO 3.73 (<5); HDL CHOLESTEROL 48.4 MG/DL (>40); LDL CHOLESTEROL 107.4 MG/DL (<100); NON-HDL-C 132.6 MG/DL
[2023-01-03 12:29] LABS: THYROID STIMULATING HORMONE 2.473 uIU/ML (0.55-4.78)
== END ==
LOC: M LAB REF 11:28
PROVIDERS: ATTEND Family Medicine Addiction Medicine
DX: E03.9 Hypothyroidism, unspecified (principal)

== ENCOUNTER → 2023-09-02 | Outpatient (CLI) | payer MEDICAID ==
[~2023-09-02] MED LIST changes: -LIDO15SO PO; +LIDO15SO8 PO
== END ==
LOC: M RAD 08:26
PROVIDERS: ATTEND Family Medicine Addiction Medicine
DX: M54.50 Low back pain, unspecified (principal); M47.814 Spondylosis without myelopathy or radiculopathy, thoracic region

== ENCOUNTER → 2023-10-14 | Outpatient (REF) | payer MEDICAID ==
[2023-10-14 14:02] LABS: BASO % 0.7 % (0.0-1.0); EOS # 0.1 10^3/uL (0.0-0.5); EOS % 1.1 % (0.0-3.0); HEMATOCRIT 37.3 % (36.0-47.0); HEMOGLOBIN 11.7 g/dl (12.0-15.5); LYMPH # 1.6 10^3/uL (1.5-5.0); LYMPH % 28.3 % (24.0-44.0); MEAN CORPUSCULAR HEMOGLOBIN 24.3 pg (27.0-33.0); MEAN CORPUSCULAR HGB CONC 31.4 g/dl (32.0-36.5); MEAN CORPUSCULAR VOLUME 77.4 fl (80.0-96.0); MONO # 0.6 10^3/uL (0.0-0.8); MONO % 11.4 % (2.0-8.0); NEUTROPHILS # 3.2 10^3/uL (1.5-8.5); NEUTROPHILS % 58.3 % (36.0-66.0); PLATELET COUNT, AUTOMATED 414 10^3/uL (150-450); RED BLOOD COUNT 4.82 10^6/uL (4.00-5.40); WHITE BLOOD COUNT 5.5 10^3/uL (4.0-10.0)
[2023-10-14 14:03] LABS: HEMATOCRIT 37.3 % (36.0-47.0)
[2023-10-14 14:28] LABS: IRON (FE) 43 UG/DL (50-170); THYROID STIMULATING HORMONE 1.705 uIU/ML (0.55-4.78)
[2023-10-14 14:29] LABS: ALBUMIN 3.9 G/DL (3.2-5.2); ALKALINE PHOSPHATASE 90 U/L (46-116); ALT/SGPT 24 U/L (7.0-40); AST/SGOT 17 U/L (<34); BILIRUBIN,TOTAL 0.4 MG/DL (0.3-1.2); BLOOD UREA NITROGEN 13 MG/DL (9-23); CALCIUM LEVEL 9.2 MG/DL (8.5-10.1); CARBON DIOXIDE LEVEL 25 MMOL/L (20-31); CHLORIDE LEVEL 109 MMOL/L (98-107); GLOMERULAR FILTRATION RATE > 60.0 (>58); GLUCOSE, FASTING 65 MG/DL (60-100); PERCENT SATURATION 9.8 % (13.2-45.0); POTASSIUM SERUM 4.9 MMOL/L (3.5-5.1); SODIUM LEVEL 141 MMOL/L (136-145); TOTAL IRON BINDING CAPACITY 441 UG/DL (250-425); TOTAL PROTEIN 6.6 G/DL (5.7-8.2)
[2023-10-14 14:30] LABS: VITAMIN B12 LEVEL 345 PG/ML (211-911)
== END ==
LOC: M LAB REF 13:23
PROVIDERS: ATTEND Family Medicine Addiction Medicine
DX: Z98.84 Bariatric surgery status (principal); E03.9 Hypothyroidism, unspecified; R21 Rash and other nonspecific skin eruption

== ENCOUNTER 2024-11-16 07:00 | Day surgery (SDC) | payer OTHER ==
[~2024-11-16] VITALS: Ht 157.5 cm; Wt 130.1 kg
[~2024-11-16 07:00] MED LIST changes: -CYCL5TAB PO; +CYCL5TAB4 PO; +FERR325T81 PO; +LIDOCAINE 2% 100 MG/5 ML SDV (FOR ANES.) As Ordered ONE; +MONT10TA97 PO; +OMEP40CA4 PO; +SYNT100T PO
[2024-11-16 08:14] VITALS: TEMP 99
[2024-11-16 08:30] VITALS: BP 155/99; O2SAT 100
== END 2024-11-16 08:34 | disposition home or self-care (01) ==
LOC: M OPP 07:00
PROVIDERS: ATTEND Surgery
DX: K31.89 Other diseases of stomach and duodenum (principal); R10.13 Epigastric pain; Z79.899 Other long term (current) drug therapy; J45.909 Unspecified asthma, uncomplicated; Z98.84 Bariatric surgery status

== ENCOUNTER → 2024-11-23 | Outpatient (REF) | payer OTHER ==
[~2024-11-23] MED LIST changes: -LIDOCAINE 2% 100 MG/5 ML SDV (FOR ANES.) As Ordered ONE
[2024-11-23 13:19] LABS: ALT/SGPT 29 U/L (7.0-40); AST/SGOT 23 U/L (<34); CALCIUM LEVEL 9.0 MG/DL (8.5-10.1); CARBON DIOXIDE LEVEL 25 MMOL/L (20-31); CHLORIDE LEVEL 106 MMOL/L (98-107); CHOLESTEROL LEVEL 192 MG/DL (<200); CHOLESTEROL RISK RATIO 4.21 (<5); CREATININE FOR GFR 0.81 MG/DL (0.55-1.30); GLOMERULAR FILTRATION RATE > 90.0 (>58); LDL CHOLESTEROL 110.6 MG/DL (<100); NON-HDL-C 146.4 MG/DL; POTASSIUM SERUM 4.4 MMOL/L (3.5-5.1); SODIUM LEVEL 138 MMOL/L (136-145); TRIGLYCERIDES LEVEL 179 MG/DL (<150)
== END ==
LOC: M LAB REF 12:19
PROVIDERS: ATTEND Family Medicine Addiction Medicine
DX: E78.1 Pure hyperglyceridemia (principal)

== ENCOUNTER → 2025-01-13 | Outpatient (CLI) | payer OTHER ==
[~2025-01-13] MED LIST changes: +GASTROGRAFIN SOLUTION 30 ML As Ordered ONE; +ISOVUE-370 76% 100 ML VIAL As Ordered ONE
== END ==
LOC: M RAD 10:36
PROVIDERS: ATTEND Surgery
DX: R10.84 Generalized abdominal pain (principal); K44.9 Diaphragmatic hernia without obstruction or gangrene; K21.9 Gastro-esophageal reflux disease without esophagitis; Z98.84 Bariatric surgery status; Z90.49 Acquired absence of other specified parts of digestive tract; N28.1 Cyst of kidney, acquired; K42.9 Umbilical hernia without obstruction or gangrene
CPT/HCPCS: 74177; Q9963; Q9967